=== PATIENT | female | born 1955 | race Caucasian/White ===

== ENCOUNTER 2018-07-07 17:10 | Emergency (ER) | payer OTHER ==
[2018-07-07 17:16] VITALS: BP 130/88
[2018-07-07] MEDS ORDERED: MORPHINE SULFATE 4 MG/ML DISP.SYRIN. IV ONE (17:30)
[2018-07-07] MEDS ORDERED: ONDANSETRON PF 4 MG/2 ML VIAL. IV ONE ×2 (17:30→18:30)
--- NOTE | 2018-07-07 17:45 | PHYS DOC ---
Past History Past Medical History: No Pertinent History, Other Additional Past Medical Histor: osteoporosis, osteoarthritis (ALEX YU DO) Past Surgical History: No Surgical History (ALEX YU DO) Smoking: Non-smoker Alcohol Use: None Drug Use: None (ALEX YU DO) Adult General Chief Complaint Chief Complaint: UPPER EXTREMITY PAIN HPI HPI Patient is a 63-year-old female who presents with left upper extremity pain from her collar bone distally. No numbness. Increased pain with movement. Patient was working in the garden and fell in the mud, striking the work heart on the way down. There was no loss of consciousness. No head injury. This happened just prior to arrival. No pain medicines were taken at home. Patient is on meloxicam daily for osteoarthritis issues. She has a remote history of bilateral collarbone fractures in childhood. She is right hand dominant. No other injury is noted by the patient.[] (ALEX YU DO) Review of Systems Review of Systems Constitutional: Denies fever or chills [] Eyes: Denies change in visual acuity, redness, or eye pain [] HENT: Denies nasal congestion or sore throat [] Respiratory: Denies cough or shortness of breath [] Cardiovascular: No chest pain or palpitations[] GI: Denies abdominal pain, nausea, vomiting, bloody stools or diarrhea [] : Denies dysuria or hematuria [] Musculoskeletal: See history of present illness[] Integument: Denies rash or skin lesions [] Neurologic: Denies headache, focal weakness or sensory changes [] Endocrine: Denies polyuria or polydipsia [] All other systems were reviewed and found to be within normal limits, except as documented in this note. (ALEX YU DO) Current Medications Current Medications Current Medications Medications (Trade) Dose Ordered Sig/Ximena Start Time Stop Time Status Last Admin Dose Admin Morphine Sulfate (Morphine 4mg Syringe) 4 mg 1X ONCE 07/07/18 17:30 07/07/18 17:31 UNV Ondansetron HCl (Zofran) 4 mg 1X ONCE 07/07/18 17:30 07/07/18 17:31 UNV (ALEX YU DO) Physical Exam Physical Exam Constitutional: Well developed, well nourished, no acute distress, non-toxic appearance. [] HENT: Normocephalic, atraumatic, bilateral external ears normal, oropharynx moist, no oral exudates, nose normal. [] Eyes: PERRLA, EOMI, conjunctiva normal, no discharge. [] Neck: Normal range of motion, no tenderness, supple, no stridor. [] Cardiovascular:Heart rate regular rhythm, no murmur [] Lungs & Thorax: Bilateral breath sounds clear to auscultation [] Abdomen: Bowel sounds normal, soft, no tenderness, no masses, no pulsatile masses. [] Skin: Warm, dry, no erythema, no rash. [] Back: No tenderness, no CVA tenderness. [] Extremities: Tenderness diffusely in the left upper extremity, along the clavicle without any crepitus, diffusely in the upper arm. There is point tenderness in the distal radius with dorsal deformity noted. Patient is distal neurovascularly intact. Cap refill of less than 2 seconds.[] Neurologic: Alert and oriented X 3, normal motor function, normal sensory function, no focal deficits noted. [] Psychologic: Affect normal, judgement normal, mood normal. [] [facility] Current Patient Data Vital Signs Vital Signs Date Time Temp Pulse Resp B/P (MAP) Pulse Ox O2 Delivery O2 Flow Rate FiO2 07/07/18 17:16 98.1 88 18 96 Room Air ([facility] EKG EKG [] ([facility]) Radiology/Procedures Radiology/Procedures [] ([facility]) Impressions: X-ray of the left wrist demonstrates distal radius fracture and ulnar styloid process fracture (ELA MARCANO Jr. DO) Course & Med Decision Making Course & Med Decision Making Pertinent Labs and Imaging studies reviewed. (See chart for details) ED course: Patient arrived, was placed in bed, and tolerated exam well. Patient patient had IV access established in her ears noninjured arm and was administered pain medications. She was transported to and from radiology with any complications. Patient care endorsed to the oncoming physician at 1800 with the imaging results pending.[] ([facility] Course & Med Decision Making Upon reviewing x-ray imaging, patient's case was discussed with Dr. Cantrell and he does not recommend reduction at this time. He recommends splinting in place with sling and he will follow up with patient next week. Patient placed in a sugar tong splint and placed in sling. After splinting, patient reports that pain is much improved. Patient noted to have good cap refill to all digits. Splint placed by client technical professional. (ELA MARCANO Jr., DO) Dragon Disclaimer Dragon Disclaimer This electronic medical record was generated, in whole or in part, using a voice recognition dictation system. (ALEX YU DO) Departure Departure: Impression: Primary Impression: Distal radius fracture, left Additional Impression: Fracture of ulnar styloid Disposition: HOME, SELF-CARE Condition: STABLE Referrals: KAYLEN TAPIA DO (PCP) KENYA CANTRELL MD Patient Instructions: Wrist Fracture Additional Instructions: Call tomorrow morning to schedule appointment with orthopedist for early this coming week. Scripts Ondansetron Hcl (ZOFRAN) 4 Mg Tablet 4 MG PO Q6HRS PRN for NAUSEA, #15 TAB Prov: ELA MARCANO Jr., DO 07/07/18 Hydrocodone Bit/Acetaminophen (HYDROCODONE-APAP 7.5-325 ) 1 Each Tablet 1 TAB PO PRN Q6HRS PRN for PAIN, #20 TAB 0 Refills Prov: ELA MARCANO Jr., DO 07/07/18 Problem Qualifiers Primary Impression: Distal radius fracture, left Encounter type: initial encounter Fracture type: closed Fracture morphology : unspecified fracture morphology Qualified Codes: S52.502A - Unspecified fracture of the lower end of left radius, initial encounter for closed fracture Additional Impression: Fracture of ulnar styloid Encounter type: initial encounter Fracture type: closed Fracture alignment : displaced Laterality: left Qualified Codes: S52.612A - Displaced fracture of left ulna styloid process, initial encounter for closed fracture ALEX YU DO Jul 07, 2018 17:45 ELA MARCANO Jr., DO Jul 07, 2018 19:50
[2018-07-07] MEDS ORDERED: HCTZ (18:24)
[2018-07-07] MEDS ORDERED: SIMV20TA (18:24)
[2018-07-07] MEDS ORDERED: AMLO2.5T2 (18:24)
[2018-07-07] MEDS ORDERED: SERT100T (18:24)
[2018-07-07] MEDS ORDERED: ALEN70TA3 (18:24)
[2018-07-07] MEDS ORDERED: KETOROLAC 15 MG/ML VIAL. IV ONE (18:30)
[2018-07-07] MEDS ORDERED: HYDROcodone/APAP 7.5/325MG 1 TAB TABLET PO ONE (19:45)
[2018-07-07] MEDS ORDERED: ONDANSETRON 4MG ODT 4TABLET STARTPACK. PO ONE (19:45)
[2018-07-07] MEDS ORDERED: HYDR-2765 PO (19:50)
[2018-07-07] MEDS ORDERED: ONDA4TAB7 PO (19:50)
--- NOTE | 2018-07-08 08:28 | RAD ---
Left clavicle, humerus, forearm and wrist radiograph 07/07/2018 6:44 PM INDICATION: Left clavicle pain with left upper extremity pain and deformity of the wrist after fall COMPARISON: None available. TECHNIQUE: 3 views of the forearm, 3 views of the wrist, 2 views of the humerus and 2 views of the clavicle are provided. FINDINGS: Left clavicle and humerus: There is no acute fracture or dislocation. Acromioclavicular joints are maintained. Glenohumeral joint is intact. Humerus is intact. No suspicious osseous abnormality is visualized. Left forearm and wrist: There is a comminuted, mildly displaced and foreshortened fracture involving the distal radial metadiaphysis with possible extension to the radiocarpal and distal radioulnar joint in 2 separate locations. There is associated soft tissue swelling with apex volar angulation. Scaphoid and lunate appear intact. Proximal forearm is intact. IMPRESSION: 1. Comminuted, mildly displaced, foreshortened and angulated fracture of the distal radial metadiaphysis with possible intra-articular extension. 2. No acute fracture or dislocation of the left clavicle and humerus. Electronically signed by: Yesenia Stoddard MD (07/08/2018 8:25 AM) [id number]
== END 2018-07-07 20:04 | disposition home or self-care (01) ==
LOC: ER 17:10
DX: S52.502A Unspecified fracture of the lower end of left radius, initial encounter for closed fracture (principal); S52.612A Displaced fracture of left ulna styloid process, initial encounter for closed fracture; M19.90 Unspecified osteoarthritis, unspecified site; W18.09XA Striking against other object with subsequent fall, initial encounter; Y93.89 Activity, other specified; Y92.89 Other specified places as the place of occurrence of the external cause; Y99.8 Other external cause status
CPT/HCPCS: 29125; 73000; 73060; 73090; 73110; 96374; 96375; 96376; 99283; J1885; J2270; J2405; J3010; Q0162

== ENCOUNTER 2019-04-29 07:33 | Emergency (ER) | payer OTHER ==
[~2019-04-29] VITALS: Ht 156.2 cm; Wt 74.9 kg
[~2019-04-29 07:33] MED LIST: ALEN70TA3; AMLO2.5T2; HCTZ; HYDR-2765 PO; ONDA4TAB7 PO; SERT100T; SIMV20TA
[2019-04-29] MEDS ORDERED: IV NORMAL SALINE 1,000ML 1,000 ML IV ONE (08:00)
[2019-04-29] MEDS ORDERED: ONDANSETRON PF 4 MG/2 ML VIAL. IVP ONE (08:00)
--- NOTE | 2019-04-29 08:07 | PHYS DOC ---
Past History Past Medical History: No Pertinent History, Other Additional Past Medical Histor: osteoporosis, osteoarthritis Past Surgical History: No Surgical History Smoking: Non-smoker Alcohol Use: None Drug Use: None Adult General Chief Complaint Chief Complaint: NAUSEA/VOMITING/DIARRHEA HPI HPI 64-year-old female presents with nausea, vomiting, and diarrhea for the last 9 hours. This started with vomiting around 11 PM last night. She has had vomiting every hour since that time. Just before coming to the emergency room, she also began have watery diarrhea. Her who ate the same food is not ill. The patient is concerned about dehydration. She has some generalized abdominal pain, but this started after the vomiting. She denies fever or chills. Review of Systems Review of Systems Constitutional: Denies fever or chills [] Eyes: Denies change in visual acuity, redness, or eye pain [] HENT: Denies nasal congestion or sore throat [] Respiratory: Denies cough or shortness of breath [] Cardiovascular: No additional information not addressed in HPI [] GI: Diffuse abdominal pain, nausea, vomiting, diarrhea [] : Denies dysuria or hematuria [] Musculoskeletal: Denies back pain or joint pain [] Integument: Denies rash or skin lesions [] Neurologic: Denies headache, focal weakness or sensory changes [] Endocrine: Denies polyuria or polydipsia [] All other systems were reviewed and found to be within normal limits, except as documented in this note. Current Medications Current Medications Current Medications Medications (Trade) Dose Ordered Sig/Ximena Start Time Stop Time Status Last Admin Dose Admin Ondansetron HCl (Zofran) 4 mg 1X ONCE 04/29/19 08:00 04/29/19 08:01 DC Sodium Chloride 1,000 ml @ 1,000 mls/hr 1X ONCE 04/29/19 08:00 04/29/19 08:59 Allergies Allergies Allergies Coded Allergies Type Severity Reaction Last Updated Verified No Known Drug Allergies 04/29/19 No Physical Exam Physical Exam Constitutional: Well developed, obese, well nourished, no acute distress, non- toxic appearance. [] HENT: Normocephalic, atraumatic, bilateral external ears normal, oropharynx moist, no oral exudates, nose normal. [] Eyes: PERRLA, EOMI, conjunctiva normal, no discharge. [] Neck: Normal range of motion, no tenderness, supple, no stridor. [] Cardiovascular:Heart rate 108, regular rhythm, no murmur [] Lungs & Thorax: Bilateral breath sounds clear to auscultation [] Abdomen: Bowel sounds normal, soft, no tenderness, no masses, no pulsatile masses. [] Skin: Warm, dry, no erythema, no rash. [] Back: No tenderness, no CVA tenderness. [] Extremities: No tenderness, no cyanosis, no clubbing, ROM intact, no edema. [] Neurologic: Alert and oriented X 3, normal motor function, normal sensory function, no focal deficits noted. [] Psychologic: Affect normal, judgement normal, mood normal. [] EKG EKG [] Radiology/Procedures Radiology/Procedures [] Course & Med Decision Making Course & Med Decision Making Pertinent Labs and Imaging studies reviewed. (See chart for details) The patient's labs are remarkable for a slightly elevated white count with left shift. We gave her 1 L normal saline, 4 mg of Zofran, 4 mg of loperamide. She's had no further vomiting in the emergency room. Her heart rate is under 100. She has only had one round of diarrhea. This appears to be a viral gastroenteritis. I will advise supportive care including fluids, rest, and slowly advancing her diet. She is stable for discharge at this time. I will discharge her with a prescription for Zofran. [] Dragon Disclaimer Dragon Disclaimer This electronic medical record was generated, in whole or in part, using a voice recognition dictation system. Departure Departure: Impression: Primary Impression: Viral gastroenteritis Disposition: 01 HOME, SELF-CARE Condition: STABLE Referrals: KAYLEN TAPIA DO (PCP) Patient Instructions: Viral Gastroenteritis, [id number] Scripts Ondansetron (ONDANSETRON ODT) 4 Mg Tab.rapdis 1 TAB PO PRN Q6-8HRS PRN for VOMITING, #16 TAB Prov: RUBEN MACHADO DO 04/29/19 RUBEN MACHADO DO Apr 29, 2019 08:07
[2019-04-29] MEDS ORDERED: LOPERAMIDE 2 MG CAPSULE PO ONE ×2 (08:09→08:30)
[2019-04-29 08:18] LABS: BASO % 0 % (0-3); EOS # 0.1 x10^3/uL (0.0-0.7); EOS % 1 % (0-3); HEMATOCRIT 46.2 % (36.0-47.0); HEMOGLOBIN 15.7 g/dL (12.0-15.5); LYMPH # 0.5 x10^3/uL (1.0-4.8); LYMPH % 4 % (24-48); MEAN CORPUSCULAR HEMOGLOBIN 32 pg (25-35); MEAN CORPUSCULAR HGB CONC 34 g/dL (31-37); MEAN CORPUSCULAR VOLUME 93 fL (79-100); MONO # 0.4 x10^3/uL (0.0-1.1); MONO % 3 % (0-9); NEUT # 11.1 x10^3uL (1.8-7.7); NEUT % 91 % (31-73); PLATELET COUNT 355 x10^3/uL (140-400); RED BLOOD COUNT 4.98 x10^6/uL (3.50-5.40); RED CELL DISTRIBUTION WIDTH 12.5 % (11.5-14.5); WHITE BLOOD COUNT 12.1 x10^3/uL (4.0-11.0)
[2019-04-29 08:25] LABS: CALCIUM 9.3 mg/dL (8.5-10.1); CREATININE 0.8 mg/dL (0.6-1.0); GFR 72.7; POTASSIUM 3.7 mmol/L (3.5-5.1)
[2019-04-29 08:31] LABS: ALBUMIN 4.2 g/dL (3.4-5.0); ALBUMIN/GLOBULIN RATIO 1.1 (1.0-1.7); TOTAL BILIRUBIN 0.6 mg/dL (0.2-1.0); TOTAL PROTEIN 8.1 g/dL (6.4-8.2)
[2019-04-29 09:00] VITALS: BP 135/78
[2019-04-29] MEDS ORDERED: ONDA4TAB12 PO (09:01)
== END 2019-04-29 09:10 | disposition home or self-care (01) ==
LOC: ER 07:33
DX: A08.4 Viral intestinal infection, unspecified (principal); R19.7 Diarrhea, unspecified; M19.90 Unspecified osteoarthritis, unspecified site
CPT/HCPCS: 36415; 80053; 85025; 96361; 96374; 99284; J2405; J7030

== ENCOUNTER 2019-05-21 13:07 | Emergency (ER) | payer OTHER ==
[~2019-05-21] VITALS: Ht 156.2 cm; Wt 74.9 kg
[~2019-05-21 13:07] MED LIST changes: +ONDA4TAB12 PO
[2019-05-21 13:33] VITALS: BP 136/86
--- NOTE | 2019-05-21 14:12 | PHYS DOC ---
Past History Past Medical History: Arthritis, Depression, GERD, Hypertension, Other Additional Past Medical Histor: osteoporsis Past Surgical History: Appendectomy, Cholecystectomy, Hysterectomy, Oophorectomy, Tubal ligation, Other Additional Past Surgical Histo: tubal preg, ruptured ectopic; rupture abd tumor LMP; uvula removed; L arm Smoking: Non-smoker Alcohol Use: Rarely Drug Use: None Adult General Chief Complaint Chief Complaint: HAND PROBLEM HPI HPI 64 year old female presents with left wrist pain and swelling after mechanical trip and fall 2 days ago outside in yard. Reports left wrist of recent fracture last year that required surgical ORIF with Dr. Cantrell. Denies head trauma or neck pain. Denies deformity. Reports pain worse with ROM of flexion/extension. Denies new numbness/tingling. Review of Systems Review of Systems Constitutional: Denies fever or chills Musculoskeletal: Reports left wrist pain and mild swelling Integument: Denies rash or skin lesions Neurologic: Denies headache, focal weakness or sensory changes Complete systems were reviewed and found to be within normal limits, except as documented in this note. Allergies Allergies Allergies Coded Allergies Type Severity Reaction Last Updated Verified No Known Drug Allergies 04/29/19 No Physical Exam Physical Exam Constitutional: Well developed, well nourished, no acute distress, non-toxic appearance HENT: Normocephalic, atraumatic, oropharynx moist Eyes: Conjunctiva normal, no discharge Neck: Normal range of motion, no tenderness, supple Cardiovascular: Heart rate normal and regular rhythm Lungs & Thorax: Bilateral breath sounds clear to auscultation, no respiratory distress Skin: Warm, dry, no erythema, no rash, healed incision site to left distal radial wrist) Extremities: Tenderness on flex/ extension of wrist, ROM intact, no deformity Neurologic: Alert and oriented X 3, no focal deficits noted Psychologic: Affect normal, judgement normal Current Patient Data Vital Signs Vital Signs Date Time Temp Pulse Resp B/P (MAP) Pulse Ox O2 Delivery O2 Flow Rate FiO2 05/21/19 13:33 98.3 86 16 136/86 (103) 96 Room Air EKG EKG [] Radiology/Procedures Radiology/Procedures PROCEDURE: WRIST 3V LEFT EXAM: PA, oblique and lateral views left wrist DATE: 05/21/2019 1:47 PM INDICATION: Left wrist pain, fall COMPARISON: 07/07/2018 FINDINGS: Volar screw plate fixation of the distal radial fracture is in near-anatomic alignment without definite hardware competition. Chronic/ulnar styloid avulsion fracture is seen. Decreased bone mineral density. No acute fracture is seen. Mild radiocarpal degenerative changes are seen. IMPRESSION: 1. Reduction and fixation of the distal radial fracture, healed. No new fracture is seen within the constraints of osteopenia. Consider short interval follow-up imaging or further evaluation with MRI if there is persistent clinical concern for fracture. 2. Chronic ulnar styloid avulsion fracture is seen. Electronically signed by: Omero Alcala MD (05/21/2019 2:10 PM) [facility] Course & Med Decision Making Course & Med Decision Making Pertinent Imaging studies reviewed. (See chart for details) Patient presents with pain and mild swelling to left wrist s/p fall. hx of recent ORIF due to fracture to same wrist. Pain addressed with ICE pack. Patient declined other meds. XR without acute fracture. Hardware appears in place. Offered splint which patient declined. Patient reports she has one at home she will wear. Discussed need for RICE. Patient stable for discharge home with outpatient follow-up with PCP/Orthopedics. Discussed findings and plan with patient, who acknowledges understanding and agreement. Dragon Disclaimer Dragon Disclaimer This electronic medical record was generated, in whole or in part, using a voice recognition dictation system. Departure Departure: Impression: Primary Impression: Left wrist sprain Disposition: HOME, SELF-CARE Condition: STABLE Referrals: PCP,NO (PCP) Patient Instructions: Wrist Splint, [id number], Wrist Sprain with [facility]- [facility] Additional Instructions: ICE area 20 min on then leave off for next 20 min before repeating. Repeat as needed over next few days. Use over the counter Tylenol and Ibuprofen for pain or discomfort. Problem Qualifiers Primary Impression: Left wrist sprain Encounter type: initial encounter Qualified Codes: S63.502A - Unspecified sprain of left wrist, initial encounter MITA MCKEON DO May 21, 2019 14:12
== END 2019-05-21 14:41 | disposition home or self-care (01) ==
LOC: ER 13:07
DX: S63.502A Unspecified sprain of left wrist, initial encounter (principal); K21.9 Gastro-esophageal reflux disease without esophagitis; I10 Essential (primary) hypertension; Z90.49 Acquired absence of other specified parts of digestive tract; Z90.710 Acquired absence of both cervix and uterus; W01.0XXA Fall on same level from slipping, tripping and stumbling without subsequent striking against object, initial encounter; Y93.89 Activity, other specified; Y92.89 Other specified places as the place of occurrence of the external cause; Y99.8 Other external cause status
CPT/HCPCS: 73110; 99283

== ENCOUNTER → 2020-04-14 | Outpatient (CLI) | payer OTHER ==
--- NOTE | 2020-04-15 09:32 | RAD ---
EXAM: Dual energy x-ray absorptiometry (DEXA). HISTORY: Osteoporosis. COMPARISON: None available. TECHNIQUE: Dual energy x-ray absorptiometry of the lumbar spine and right femur was performed. Calcu lation of bone mineral density based on standard deviations above or below the expected young adult n ormal value (T-score) was completed. FINDINGS: The average bone mineral density in the 1st through 4th lumbar vertebrae is 0.880 g/cmxcm, corresponding with a T-score of -2.5. The average total bone mineral density in the right femur is 0.761 g/cmxcm, corresponding with a T-s core of -1.6. IMPRESSION: Findings are within the range of osteopenia with relation of the right femur and borderline low osteo penia with relation of the spine. Note: Definitions established by the World Health Organization: 1. Normal: T-score is -1.0 or above. 2. Osteopenia: T-score is between -1.0 and -2.5 . 3. Osteoporosis: T-score is -2.5 or below. Electronically signed by: Yesenia Stoddard MD (04/15/2020 9:29 AM) [id number]
== END ==
LOC: DXRAD 12:44
PROVIDERS: ATTEND Family Medicine
DX: M81.8 Other osteoporosis without current pathological fracture (principal); M85.88 Other specified disorders of bone density and structure, other site
CPT/HCPCS: 77080